=== PATIENT | male | born 1970 | race Caucasian/White ===

== ENCOUNTER 2019-04-08 13:16 | Emergency (ER) | payer BC ==
[~2019-04-08] VITALS: Ht 185.4 cm; Wt 132.2 kg
[2019-04-08] MEDS ORDERED: IV NORMAL SALINE 1,000ML 1,000 ML IV ONE (13:30)
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
[2019-04-08 13:51] LABS: BASO # 0.1 x10^3/uL (0.0-0.2); BASO % 1 % (0-3); EOS # 0.5 x10^3/uL (0.0-0.7); EOS % 4 % (0-3); HEMATOCRIT 49.2 % (39.0-53.0); LYMPH # 3.2 x10^3/uL (1.0-4.8); LYMPH % 30 % (24-48); MEAN CORPUSCULAR HEMOGLOBIN 33 pg (25-35); MEAN CORPUSCULAR HGB CONC 35 g/dL (31-37); MEAN CORPUSCULAR VOLUME 94 fL (79-100); MONO # 0.8 x10^3/uL (0.0-1.1); MONO % 7 % (0-9); NEUT # 6.1 x10^3uL (1.8-7.7); NEUT % 58 % (31-73); PLATELET COUNT 306 x10^3/uL (140-400); RED BLOOD COUNT 5.22 x10^6/uL (4.30-5.70); RED CELL DISTRIBUTION WIDTH 12.9 % (11.5-14.5); WHITE BLOOD COUNT 10.6 x10^3/uL (4.0-11.0)
[2019-04-08 13:59] LABS: CALCIUM 9.2 mg/dL (8.5-10.1); CREATININE 0.8 mg/dL (0.7-1.3); GFR 104.1; POTASSIUM 3.6 mmol/L (3.5-5.1)
--- NOTE | 2019-04-08 14:45 | RAD ---
PORTABLE CHEST 1V History: Cough Comparison: February 10, 2005 Findings: Single view of the chest is submitted. There is likely mild patchy left base airspace opacity. There is no significant dependent pleural fluid or pneumothorax. Heart size is similar. Impression: 1. There is likely mild patchy left base atelectasis or infiltrate. Electronically signed by: Hilario Dos Santos MD (04/08/2019 2:42 PM) [id number]
--- NOTE | 2019-04-08 14:45 | RAD ---
CT HEAD AND MAXILLOFACIAL WO Date: 04/08/2019 1:28 PM Clinical Indication: Syncope, head injury, pain Comparison: None. Technique: 5 mm axial tomographic images were obtained of the head without contrast. These were viewed on brain and bone windows. Axial helical images of the face were obtained without contrast. Axial and coronal reconstruction was performed. One or more of the following dose reduction techniques were utilized: Automated exposure control (AEC), Adjustment of mA and/or kV according to patient size, Use of iterative reconstruction technique such as ASiR, CT scan done according to ALARA and image gently/image wisely CT HEAD FINDINGS: The brain parenchyma is normal in attenuation. No intra- or extra-axial mass or fluid collection. No acute hemorrhage. The ventricles are normal in size, shape, and morphology. The caba-white matter junction is normal. The basilar cisterns are patent. The mastoid air cells are clear. No aggressive osseous lesion or fracture. CT FACE FINDINGS: Irregularity at the tip of the nasal bones and along the adjacent nasal septum. The paranasal sinuses are clear. The orbits are normal. The globes are intact. The nasal septum is deviated to the right. Impression: 1. Irregularity at the tip of the nasal bones and adjacent nasal septum, likely age indeterminate fracture. Correct for focal tenderness. 2. No acute intracranial process. Electronically signed by: Hilario Jones MD (04/08/2019 2:42 PM) [id number]
--- NOTE | 2019-04-08 14:47 | EKG ---
[address] [address] Test Date: 2019-04-08 Test Time: 13:44:46 Pat Name: IMANI DE LA CRUZ Department: Room: Gender: M [employer]: : [id number] Requested By: TARAN MCLEOD Order Number: [id number] Reading MD: Measurements Intervals [place] Rate: 100 P: 37 ID: 200 QRS: 61 QRSD: 132 T: 28 QT: 350 QTc: 455 Interpretive Statements SINUS RHYTHM AXIS NORMAL CONSIDERING AGE PROLONGED ID INTERVAL RIGHT BUNDLE BRANCH BLOCK ABNORMAL ECG RI6.01 No previous ECG available for comparison
[2019-04-08] MEDS ORDERED: BENZ100C PO ×2 (15:57→16:04)
[2019-04-08] MEDS ORDERED: LEVO750T31 PO ×2 (15:57→16:04)
[2019-04-08 16:11] VITALS: BP 130/73
== END 2019-04-08 16:09 | disposition home or self-care (01) ==
LOC: ER 13:16
DX: S00.01XA Abrasion of scalp, initial encounter (principal); R55 Syncope and collapse; J18.9 Pneumonia, unspecified organism; E78.00 Pure hypercholesterolemia, unspecified; E78.5 Hyperlipidemia, unspecified; I10 Essential (primary) hypertension; F17.210 Nicotine dependence, cigarettes, uncomplicated; W18.39XA Other fall on same level, initial encounter; Y93.89 Activity, other specified; Y92.89 Other specified places as the place of occurrence of the external cause; Y99.8 Other external cause status
CPT/HCPCS: 36415; 70450; 70486; 71045; 80048; 83735; 84484; 85025; 93005; 96360; 96361; 99285-25; J7030